=== PATIENT | male | born 1965 | race Caucasian/White ===

== ENCOUNTER 2021-03-26 14:19 | Emergency (ER) | payer OTHER ==
[~2021-03-26 14:19] MED LIST: AMMONIA INH
[2021-03-26 15:06] LABS: RED BLOOD COUNT 4.47 M/UL (4.20-5.50); WHITE BLOOD COUNT 6.7 K/UL (4.5-11.0)
[2021-03-26 15:37] LABS: BUN/CREATININE RATIO 17 (0-10)
[2021-03-26] MEDS ORDERED: KEPPRA500 MG PO (16:59)
== END 2021-03-26 17:25 | disposition home or self-care (01) ==
LOC: ER1 14:19
PROVIDERS: Emergency Medicine
DX: G40.909 Epilepsy, unspecified, not intractable, without status epilepticus (principal); S50.02XA Contusion of left elbow, initial encounter; E11.9 Type 2 diabetes mellitus without complications; W22.8XXA Striking against or struck by other objects, initial encounter
CPT/HCPCS: 70450; 71045; 72125; 73080; 73630; 80053; 80184; 82550; 82553; 83605; 83874; 84484; 85025; 93005; 96374; 99284; J1953; J2060; J7030